=== PATIENT | female | born 1990 | race Caucasian/White ===

== ENCOUNTER 2017-07-30 22:32 | Emergency (ER) | payer OTHER ==
[2017-07-30 22:41] VITALS: BP 156/105
== END 2017-07-31 01:09 | disposition home or self-care (01) ==
LOC: ED 22:32
DX: S51.811A Laceration without foreign body of right forearm, initial encounter (principal); X58.XXXA Exposure to other specified factors, initial encounter; Y93.89 Activity, other specified; Y99.8 Other external cause status; Y92.89 Other specified places as the place of occurrence of the external cause
CPT/HCPCS: J2001